=== PATIENT | female | born 1990 | race Hispanic/Latino ===

== ENCOUNTER 2018-08-23 18:02 | Inpatient (IN) | payer OTHER ==
[2018-08-23 18:39] VITALS: BMI 36.6
[2018-08-23] MEDS ORDERED: NS / Oxytocin 40 units/1000ml 1,000 ML IV PRN (18:50)
[2018-08-23] MEDS ORDERED: Ibuprofen 800 MG TAB PO SCH (18:50)
[2018-08-23] MEDS ORDERED: Ondansetron PF 4 MG/2 ML Vial IVP PRN ×2 (18:50→20:24)
[2018-08-23] MEDS ORDERED: Lidocaine 1% (PF) 30 ML VIAL SC PRN (18:50)
[2018-08-23] MEDS ORDERED: Lactated Ringer's 1,000 ML IV SCH (19:00)
[2018-08-23] MEDS: Lactated Ringer's 1,000 ML IV SCH ×2 (19:05→23:00)
[2018-08-23] MEDS ORDERED: Fentanyl 4 mcg/Bup 0.1% Cadd 100 ML ONE (19:19)
[2018-08-23] MEDS ORDERED: Fentanyl 100 MCG/2 ML VIAL ONE (19:32)
[2018-08-23] MEDS ORDERED: Bupivacaine 0.5% 10 ML VIAL ONE (19:32)
[2018-08-23 19:36] LABS: Hemoglobin 12.9 g/dL (12.0-16.0); Mean Corpuscular HGB CONC 34.4 g/dL (32.0-36.0); Mean Corpuscular Hemoglobin 28.6 pg (27.0-31.0); Mean Corpuscular Volume 83.1 fL (78.0-98.0); Mean Platelet Volume 10.9 fL (7.4-10.4); Platelet Count 153 thou/uL (130-400); RBC Distribution Width 13.4 % (11.5-14.5); White Blood Cell (WBC) Count 11.2 thou/uL (4.8-10.8)
[2018-08-23 20:15] LABS: HBSAg Index 0.18 S/CO (0-0.99); Hep B Surf Ag Non-Reactive S/CO (NonReactive); Syphilis Antibody Nonreactive (Nonreactive); Syphilis Antibody Index 0.05 S/CO (<1.00 Non-Reactive)
[2018-08-23] MEDS ORDERED: Penicillin G Potassium 5 MILL.UNITS in Sodium Chloride 0.9% 100 ML IVPB SCH (20:15)
[2018-08-23] MEDS ORDERED: ePHEDrine/0.9% NaCl/PF SYRINGE 50 mg/10 ml SLOW IVP PRN (20:24)
[2018-08-23] MEDS ORDERED: Eucerin (Mineral Oil/Petrolatum,White) 30 gm Jar TOP PRN (20:24)
[2018-08-23] MEDS ORDERED: Fentanyl 100 MCG/2 ML VIAL I-THECAL ONE (20:24)
[2018-08-23] MEDS ORDERED: Naloxone HCl 0.4 mg/ml Vial IVP PRN ×2 (20:24)
[2018-08-23] MEDS ORDERED: Promethazine HCl 25 MG/ML VIAL IM PRN (20:24)
[2018-08-23] MEDS ORDERED: diphenhydrAMINE 50 MG/ML VIAL IVP PRN (20:24)
[2018-08-23] MEDS ORDERED: Lactated Ringer's 500 ML IV PRN (20:24)
[2018-08-23] MEDS ORDERED: Acetaminophen 325 MG TAB PO PRN (20:24)
[2018-08-23] MEDS ORDERED: Fentanyl 4 mcg/Bupivacaine 0.1% Cassette 100 ML EPIDURAL SCH (20:30)
[2018-08-23] MEDS ORDERED: Communication Order-Pharmacy FS SCH (20:30)
[2018-08-23] MEDS ORDERED: Pen G 2.5 MILL.UNITS/50 ML BAG IVPB SCH (21:00)
[2018-08-24] MEDS: NS / Oxytocin 40 units/1000ml 1,000 ML IV SCH ×2 (03:00→04:14)
--- NOTE | 2018-08-24 03:10 | PDOC.LDHP ---
Labor and Delivery H&P Chief complaint: contractions HPI: 28yo at 38w6d by LMP c/w first trimester sono with c/o painful contractions since this afternoon. No LOF VB. Current gestational age (weeks): 38 Due date: 09/01/18 Dating criteria: last menstrual period Grav: 2 Para: 1 Current complications: none Abnormal US findings: No Past Medical History: denies Current medications: pre-pedro luis vitamins Previous surgical history: none Allergies/Adverse Reactions: Allergies Allergy/AdvReac Type Severity Reaction Status Date / Time No Known Allergies Allergy Verified 03/07/16 18:17 Social history: none - Physical Exam Vital signs reviewed and normal: yes General: NAD Heart: RRR Lungs: CTAB Abdomen: gravid Extremeties: no edema FHT: category 1 [place] contractions every: q3min - Vaginal Exam cm dilated: 10 Effacement: 100% Station: 3+ - OB Labs Blood type: O RH: positive Antibody Screen: negative HIV: negative RPR: negative HEPSAg: negative 1 hour GCT: positive 3 hour GTT: negative 1/4 values abn GBS: positive Urine drug screen: negative Rubella: immune - Assessment L&D Assessment: term patient in labor - Plan Plan: admit to L&D, labor augmentation if indicated, GBS antibiotic prophylaxis , informed consent obtained, anesthesia consult for pain management
--- NOTE | 2018-08-24 03:11 | PDOC.OPDEL ---
OB Operative/Delivery Note Delivery Dr/Surgeon: Nancy Assist: n/a Pre-Delivery Diagnosis: active labor Procedure/Post Delivery Dx: spontaneous vaginal delivery Weeks gestation: 38 Anesthesia: epidural - Findings A Sex: male - 1 min: 9 - 5 min: 7 - Additional Findings/Plan Placenta delivered: spontaneous Repaired Obstetrical Laceration: none Estimated blood loss: 300cc, qbl pending Compilations/Other Findings: NC x 1 tight, delivered through Post delivery plan: routine recovery
[2018-08-24] MEDS ORDERED: Bisacodyl 10 MG SUPP PR PRN (03:48)
[2018-08-24] MEDS ORDERED: Ondansetron PF 4 MG/2 ML Vial IVP PRN (03:48)
[2018-08-24] MEDS ORDERED: diphenhydrAMINE 25 MG CAP PO PRN (03:48)
[2018-08-24] MEDS ORDERED: Milk Of Magnesia 30 ML UDCUP PO PRN (03:48)
[2018-08-24] MEDS ORDERED: HYDROcodone/Acetaminophen 5/325 mg Tablet PO PRN ×2 (03:48)
[2018-08-24] MEDS ORDERED: Lanolin Ointment 7 GM TUBE TOP PRN (03:48)
[2018-08-24] MEDS ORDERED: Preparation H Ointment 28 GM TUBE PR PRN (03:48)
[2018-08-24] MEDS ORDERED: Benzocaine/Menthol 20-0.5% 60 ML CAN TOP PRN (03:48)
[2018-08-24] MEDS ORDERED: Adacel (T-DAP) 0.5 ML VIAL IM ONE (09:00)
[2018-08-24] MEDS: Docusate Calcium (SURFAK) 240 MG CAP PO SCH ×2 (14:06→20:36)
[2018-08-24] MEDS: Ferrous Sulfate 325 MG TAB PO SCH ×2 (14:06→17:01)
[2018-08-24] MEDS: Prenatal Vitamin 1 TAB PO SCH (14:07)
[2018-08-24] MEDS: Ibuprofen 800 MG TAB PO SCH ×3 (14:12→21:49)
[2018-08-25] MEDS: Ibuprofen 800 MG TAB PO SCH (05:40)
--- NOTE | 2018-08-25 06:17 | PDOC.EVN ---
Event Note - Event Note Event Note: Discharge Note Admit date 08/23 Planned Discharge Date: 08/25/18 S/P Patient seen at bedside by me 08/25/18 at 0615; doing well VSS afebrile Abd soft, NT No Heavy VB Clinically well and now 24 hours as of 0300. We will plan on PM [facility] [place] today.
[2018-08-25] MEDS: Ferrous Sulfate 325 MG TAB PO SCH (08:45)
[2018-08-25] MEDS: Prenatal Vitamin 1 TAB PO SCH (09:08)
[2018-08-25] MEDS: Docusate Calcium (SURFAK) 240 MG CAP PO SCH (09:08)
[2018-08-25 12:55] VITALS: BP 127/72; TEMP 98.1
== END 2018-08-25 14:00 | disposition home or self-care (01) | DRG 807 ==
LOC: L&D/OP 18:02 → L&D 19:36 → 3SW 08-24 16:50
PROVIDERS: ADMIT Student in an Organized Health Care Education/Training Program; ATTEND Student in an Organized Health Care Education/Training Program
PROC: 10E0XZZ Delivery of Products of Conception, External Approach (ICD-10-PCS; principal; 2018-08-24)
DX: O99.824 Streptococcus B carrier state complicating childbirth (principal); Z37.0 Single live birth; Z3A.38 38 weeks gestation of pregnancy; O69.1XX0 Labor and delivery complicated by cord around neck, with compression, not applicable or unspecified
CPT/HCPCS: 36415; 51702; 85027; 86780; 86850; 86900; 86901; 87340; 90715; 99285; J2001; J2540; J3010; J3490; J7050